=== PATIENT | male | born 2000 | race Caucasian/White ===

== ENCOUNTER 2025-02-28 23:00 | Emergency (ER) | payer BC, MEDICAID, SELFPAY ==
[2025-02-28 23:01] VITALS: BP 116/71; PULSE 60; RESP 18; TEMP 36.6; O2SAT 98
[2025-02-28 23:02] VITALS: BMI 27.2
--- NOTE | 2025-03-01 01:17 | XR_ITS ---
Examination: Toes, right foot second digit Technique: Toes AP oblique lateral 3 views Date and time of exam: March 01, 2025 0124 hours INDICATIONS: Puncture injury to the foot yesterday with second digit pain FINDINGS: No fracture or dislocation. No foreign body IMPRESSION: No opaque foreign body
--- NOTE | 2025-03-01 01:19 | EDNOTE_ITS ---
<Statement entered by Laine Vicente MD - 03/01/25 04:48> As co-signing physician, I was present and available for consult prn. I concur with the plan and care as documented by the midlevel provider. ED Skin Abcess FB-RME/HPI General Chief complaint: Ankle/Foot Injury Stated complaint: FISH SPINE WENT INSIDE RIGHT SECOND TOE Time Seen by Provider: 03/01/25 01:17 Arrival date/time: 02/28/25 23:00 24M with no significant PMH presents to ED with R 2nd toe pain after he accidentally dropped a fish on it and one if its bones/spines went into his foot. Patient has not had a tetanus shot in the past 5 years. Limitations: no limitations Related Data Home Medications ?Medication ?Instructions ?Recorded ?Confirmed No Known Home Medications 06/10/1801/08 Allergies Allergy/AdvReac Type Severity Reaction Status Date / Time No Known Allergies Allergy Verified 02/28/25 23:02 Review of Systems Review of Systems Systems Reviewed: All systems reviewed, normal except as documented Constitutional Constitutional: Reports system reviewed and no additional complaints, except as documented, Denies fever(s) and Denies headache(s) ENT Ears, Nose, Mouth, and Throat: Denies disequilibrium and Denies headache(s) Cardiovascular Cardiovascular: Reports system reviewed and no additional complaints, except as documented, Denies chest pain and Denies dyspnea Respiratory Respiratory: Reports system reviewed and no additional complaints, except as documented, Denies cough and Denies dyspnea Gastrointestinal Gastrointestinal: Reports system reviewed and no additional complaints, except as documented, Denies abdominal pain, Denies nausea and Denies vomiting Integumentary/Breasts Skin/Breast: Reports as per HPI and Reports skin pain Neurologic Neurologic: Reports system reviewed and no additional complaints, except as documented, Denies confusion, Denies disequilibrium and Denies headache(s) Psychiatric Psychiatric: Denies confusion Past Medical History Past Medical History CARDIAC: Negative Cardiac Disorders or Congestive Heart Failure RESPIRATORY: Negative Chronic Obstructive Pulmonary Disease (COPD) or Asthma GENITOURINARY: Negative Renal Disease ENDOCRINE: Negative Diabetes Mellitus Type 1 or Diabetes Mellitus Type 2 HEMATOLOGIC: Negative Sickle Cell Disease Social History SMOKING STATUS: Never smoker ED Exam General Limitations: Present no limitations General appearance: Present alert and in no apparent distress Head Head exam: Present atraumatic Eye Eye exam: Present normal appearance, PERRL and EOMI ENT ENT exam: Present normal exam, normal oropharynx and mucous membranes moist Neck Neck exam: Present normal inspection, full ROM and trachea midline Chest Chest inspection: Present normal inspection and symmetric chest wall rise Respiratory Respiratory exam: Present normal lung sounds bilaterally Cardiovascular Cardiovascular exam: Present regular rate, normal rhythm and normal heart sounds Abdominal Exam Abdominal exam: Present soft and normal bowel sounds Extremities Exam Extremities exam: Present full ROM Expanded Lower Extremity Exam Foot/toe exam: Present full ROM (R 2nd toe) and tenderness Back Exam Back exam: Present normal inspection and full ROM Neurological Exam Neurological exam: Present alert, oriented X3 and CN II-XII intact Psychiatric Psychiatric exam: Present normal affect and normal mood Skin Skin exam: Present warm, dry, intact and normal color Course Quality Measures none Orders Category Date Time Status Wound Care NOW Care 03/01/25 02:37 Active XR toe RT min 2V Stat Exams 03/01/25 01:17 Taken TET,DIP/PERT AC (Adult)-Tdap [Boostrix Adult (Tdap) Med 03/01/25 01:17 Discontinued Vacc] 0.5 ml IMI .ONCE ONE Vital Signs Vital signs: Vital Signs Temperature 97.9 F 02/28/25 23:01 Pulse Rate 60 02/28/25 23:01 Respiratory Rate 18 02/28/25 23:01 Blood Pressure 116/71 02/28/25 23:01 Pulse Oximetry (%) 98 02/28/25 23:01 Oxygen Delivery Method Room Air 02/28/25 23:01 O2 at 98% on RA and WNLs Skin / Abscess / Foreign Body MDM Narrative MDM Narrative:: 24M with no significant PMH presents to ED with R 2nd toe pain after he accidentally dropped a fish on it and one if its bones/spines went into his foot. Patient has not had a tetanus shot in the past 5 years. Physical exam reveals R 2nd toe entry wound and tenderness. ROM and gait normal. Patient is afebrile, calm, and alert. XR reveals FB in toe, which was removed. Tdap given. Patient data External records reviewed:: [facility] previous records Clinical information provided by:: patient Social determinants that could affect healthcare access:: none Patient has the following chronic illnesses:: none How is presenting disease/condition affected by chronic disease/condition?: no chronic disease Evaluation data The following diagnostics were reviewed and interpreted by me:: radiology exam(s) Lab and/or radiology exams considered but not ordered:: ordered Interpretation Summary: above Medications / Prescriptions Medications or Prescriptions considered but not ordered:: ordered Medication administrations:: Medication Administration History Discontinued Medications Diphtheria/Tetanus/Acell Pertussis (Diphth,Pertuss(Acell),Tet Vac 0.5 Ml Syr- Adult) 0.5 ml IMi .ONCE ONE Stop: 03/01/25 01:18 Last Admin: 03/01/25 02:01 Dose: 0.5 ml Documented By: EE above Consultations Consultation(s) initiated? (list below): No Diagnosis Skin/Abscess Differential Diagnosis: abscess of skin or subcutaneous tissue, viral exanthem, dermatophytosis, urticaria, herpes zoster, allergic reaction to drug, cellulitis, eczema, insect bites, impetigo, contact dermatitis and other (FB skin) Most likely diagnosis given after review of the tests above:: FB skin Admission Indicated Admission indicated?: not indicated Admission Request Was there a request for admission?: No Disposition Plan Disposition Plan: Discharge Discharge Attestation Discharge Attestation: The patient and all family members were given an opportunity to ask questions and understood the discharge instructions. Discharge instructions specifically effects, indications for sooner follow up or return to the emergency department, and the expected course of current diagnosis. Patient condition: Stable Discharge Plan Plan Patient Disposition: HOME (Self Care) Discharge Disposition comment: Stable Prescriptions/Referrals Prescriptions/Med Rec: No Action No Known Home Medications Problem List Clinical Impression: Foreign body in skin Patient/Caregiver Discharge Instructions Education Materials: ED Foreign Body Soft Tissue Removed Additional Instructions: Please follow-up with PCP within 24-48 hours and return immediately if symptoms worsen. Print Language: Sami Stand Alone Forms: Patient Portal Info Letter MARGO/ASHTYN Supervising Physician MARGO/ASHTYN Supervising Physician: Dr. Vicente
[2025-03-01] MEDS: DIPHTH,PERTUSS(ACELL),TET VAC 0.5 ML SYR- ADULT IMi (02:01)
[2025-03-01 02:54] VITALS: BP 125/77; PULSE 61; RESP 17; TEMP 36.6; O2SAT 96
== END 2025-03-01 02:54 | disposition home or self-care (01) ==
LOC: SERX 03-01 03:54
PROVIDERS: Emergency Provider Emergency Medicine; PCP Family Medicine
DX: S90.454A Superficial foreign body, right lesser toe(s), initial encounter (principal); X58.XXXA Exposure to other specified factors, initial encounter; Z23 Encounter for immunization
CPT/HCPCS: 73660; 90471; 90715; 99283